=== PATIENT | male | born 1970 | race Caucasian/White ===

== ENCOUNTER → 2022-02-12 | Outpatient (CLI) | payer OTHER ==
--- NOTE | 2022-02-12 10:42 | US ---
EXAMINATION TYPE: US groin RT DATE OF EXAM: 02/12/2022 COMPARISON: NONE CLINICAL HISTORY: K40.90 UNILATERAL INGUINAL HERNIA. Soreness in bilateral groin post weight lifting. No ultrasound evidence of hernia. IMPRESSION: No sonographic evidence to suggest hernia at this time.
== END | disposition home or self-care (01) ==
LOC: RADUSWWP 10:09
PROVIDERS: ATTEND Family Medicine
DX: K40.90 Unilateral inguinal hernia, without obstruction or gangrene, not specified as recurrent (principal)

== ENCOUNTER → 2023-11-19 | Outpatient (CLI) | payer OTHER ==
--- NOTE | 2023-11-19 10:19 | US ---
EXAMINATION TYPE: US abdomen complete DATE OF EXAM: 11/19/2023 COMPARISON: NONE CLINICAL INDICATION: Male, 53 years old with history of R10.11 RIGHT UPPER QUADRANT PAIN; Epigastric pain with bloating and vomiting x 1 day. TECHNIQUE: Multiple sonographic images of the abdomen are obtained. FINDINGS: EXAM MEASUREMENTS: Liver Length: 14.2 cm Gallbladder Wall: 0.2 cm CBD: 0.5 cm Spleen: 8.0 cm Right Kidney: 10.1 x 4.7 x 5.1 cm Left Kidney: 11.0 x 5.7 x 5.8 cm IMPLANT COORDINATOR NOTES: Pancreas: wnl Liver: wnl Gallbladder: wnl Evidence for sonographic Rock's sign: Yes CBD: wnl Spleen: Limited visualization due to ribs Right Kidney: wnl Left Kidney: wnl Upper IVC: wnl Abd Aorta: wnl The liver is homogenous. The intrahepatic portion of the IVC and proximal abdominal aorta are within normal limits. There is no evidence of cholelithiasis. Common bile duct is unremarkable. The visu alized portions of the pancreas are homogenous. Kidneys are symmetric and free of hydronephrosis. N o renal lesions are seen. IMPRESSION: No discrete abnormality seen.
[2023-11-19 15:25] LABS: Basophils # (A) 0.04 X 10*3/uL (0.00-0.10); Basophils % (A) 0.3 %; Eosinophils # (A) 0.08 X 10*3/uL (0.04-0.35); Eosinophils % (A) 0.7 %; HCT 49.4 % (39.6-50.0); HGB 16.8 g/dL (13.0-17.0); Lymphocytes # (A) 2.22 X 10*3/uL (0.90-5.00); Lymphocytes % (A) 19.4 %; MCV 85.2 FL (80.0-97.0); Mean Platelet Volume 8.7 FL (9.5-12.2); Monocytes # (A) 0.89 X 10*3/uL (0.20-1.00); Monocytes % (A) 7.8 %; NRBC Per 100 WBC 0 X 10*3/uL (0.00-0.01); Neutrophils # (A) 8.18 X 10*3/uL (1.80-7.70); Neutrophils % (A) 71.5 %; Platelet Count 292 X 10*3/uL (140-440); RDW 12.5 % (11.5-14.5); WBC 11.44 X 10*3/uL (4.50-10.00)
[2023-11-19 16:00] LABS: ALT 39 U/L (10-49); AST 24 U/L (14-35); Albumin 4.4 g/dL (3.8-4.9); Albumin/Globulin Ratio 1.47 Ratio (1.60-3.17); Alkaline Phosphatase 74 U/L (41-126); Amylase 69 U/L (23-121); Blood Urea Nitrogen 10.8 mg/dL (9.0-27.0); Carbon Dioxide 27.9 mmol/L (21.6-31.8); Chloride 102 mmol/L (96-109); Glucose 89 mg/dL (70-110); Lipase 33 U/L (14-60); Potassium 4.8 mmol/L (3.5-5.5); Sodium 142 mmol/L (135-145); Total Bilirubin 0.6 mg/dL (0.3-1.2); Total Protein 7.4 g/dL (6.2-8.2)
== END | disposition home or self-care (01) ==
LOC: RADUSWWP 09:32
PROVIDERS: ATTEND Family Medicine
DX: R10.11 Right upper quadrant pain (principal); R10.13 Epigastric pain; R11.0 Nausea; R14.0 Abdominal distension (gaseous)
CPT/HCPCS: 76700; 80053; 82150; 83690; 85025